=== PATIENT | male | born 1980 | race Caucasian/White ===

== ENCOUNTER 2016-12-27 10:01 | Emergency (ER) | payer OTHER ==
--- NOTE | ~2016-12-27 | CT71 ---
[facility] A Service of [facility] RADIOLOGY TEXT RESULTS PATIENT: COCO FULLER LOCATION: AMBER : 76 UNIT #: [id number] AGE: [address]: Leeroy Florentino MD SEX: M ORDER DR: [id number] [facility] [address] [place], [place] [address] [id number] MR#: [id number] #: [id number] NAME: COCO FULLER : 1980 SEX: M STUDY DATE/TIME: 12/27/2016 11:33 UNIT: AMBER ROOM: STUDY DESCRIPTION: CT Head Wo Contrast Attending Physician: Leeroy Florentino M.D. Referring Physician: Self Referral-Refer Use Only Ordering Physician: Leeroy Florentino M.D. Primary Care Physician: Carla Kirk M.D. MEDICAL IMAGING REPORT This report is preliminary unless electronic signature is present EXAM Head CT without contrast HISTORY Headache and dizziness for the past week. TECHNIQUE Axial images were obtained without contrast. This CT exam was performed with one or more of the following radiation dose reduction techniques: automatic exposure control, adjustment of mA and/or kV according to patient size, and iterative reconstruction. FINDINGS Ventricular shunts appear unchanged from the previous scan of 06/13/2016. There is no evidence of ventricular dilatation to suggest shunt malfunction. There is no evidence of hemorrhage, edema or mass effect. Extraaxial structures are remarkable for fluid in the right maxillary sinus. This is new since the previous exam. IMPRESSION Acute right maxillary sinusitis. Brain images are unchanged from the previous examination with shunts in satisfactory position and no evidence of ventricular enlargement. Dictated by... Leeroy White M.D. THIS IS AN ELECTRONICALLY VERIFIED REPORT Leeroy White M.D. at 12/29/2016 12:40 PM CANDACE/rose marie [facility] A Service of [facility] RADIOLOGY TEXT RESULTS PATIENT: COCO FULLER LOCATION: AMBER : 76 UNIT #: [id number] AGE: [address]: Leeroy Florentino MD SEX: M ORDER DR: TD: 12/27/2016 12:09 JOB #: [id number] MEDICAL IMAGING REPORT Page 1 of 1 COPY
[~2016-12-27 10:01] MED LIST: ATARAX PO; BACTRIM DS TABL1 TA1 PO; FIORICET 50-321 EACH; FLEXERIL10 MG PO; IBUPROFEN800 MG PO; KEFLEX500 MG PO; LIPITOR40 MG PO; LORTAB 10-5001 EACH PO; METFORMIN HCL1000 M1 PO; MOTRIN20 MG/ML PO; NAPROSYN500 MG PO; NO MEDICATIONS; PEN-VEE K PO; PEPCID AC20 M2 PO; PHENERGAN12.5 MG PO; PREDNISONE1 MG PO
== END 2016-12-27 12:29 | disposition home or self-care (01) ==
LOC: CED 10:01
DX: G44.219 Episodic tension-type headache, not intractable (principal); J01.00 Acute maxillary sinusitis, unspecified; F17.200 Nicotine dependence, unspecified, uncomplicated; Z88.8 Allergy status to other drugs, medicaments and biological substances
CPT/HCPCS: 70450; 82947; 96372; 99284; J1885